=== PATIENT | female | born 1955 | race Caucasian/White ===

== ENCOUNTER 2016-12-11 17:04 | Inpatient (IN) | payer MEDICARE, SELFPAY ==
--- NOTE | ~2016-12-11 | DS ---
Discharge Summary [facility] [address] [place]. [address] NAME: DEBORAH NELSON : 53 STATUS : ADM IN [facility]#: [id number] AGE: 61 ADM/REG DATE : 12/12/16 MR#: [id number] REPORT SERV DATE: 12/15/16 DICTATED BY: Shana HULL DATE: 12/15/16 REPORT STATUS : Draft TRANSCRIBED BY: MODL DATE: 12/15/16 ADMISSION DATE: 12/11/2016 DISCHARGE DATE: 12/15/2016 DIAGNOSES AT DISCHARGE: Gastritis per endoscopy; intractable nausea and vomiting, resolved; epigastric abdominal pain, resolved; chronic pain syndrome, anxiety disorder, hypothyroidism. CONSULTS: Gastroenterology. PROCEDURES: Esophagogastroduodenoscopy. BRIEF SUMMARY: A 61-year-old female patient admitted with epigastric pain and refractory nausea and vomiting. Placed on 2 South telemetry, bowel rest, IV antiemetics and IV fluids with consult to Gastroenterology. Endoscopy was performed showing gastritis. Current biopsies are pending. The patient was treated with ongoing symptom control, IV fluids, acid suppression. Reglan and Questran were added. Symptoms markedly improved. The patient's diet was slowly increased. On 12/15/2016, she was tolerating a diet without difficulty and felt safe to discharge home on her current medical therapy with plans for outpatient followup with GI in four weeks. DISCHARGE MEDICATIONS: Prescriptions provided at the time of discharge include Reglan one with meals, Percocet 5 one q.4 hours p.r.n. #25, Zofran one q.4 hours p.r.n. #30, Questran 4 g packet one daily #30. Further recommendations pending outpatient followup with her primary care provider as well as outpatient followup with Dr. Scott Guardado, Gastroenterology. DICTATED BY: Shana Hull M.D. [facility]/SHANDA Shana Hull M.D. / [id number] CC: Iban Miller
--- NOTE | ~2016-12-11 | CN ---
Consultation Report [facility] [address] [place]. [address] NAME: DEBORAH MOTA : 53 STATUS : ADM Chris PAT#: [id number] AGE: 61 ADM/REG DATE : 12/11/16 MR#: [id number] REPORT SERV DATE: 12/12/16 DICTATED BY: ROSE MARIE TURNER DATE: 12/12/16 REPORT STATUS : Draft TRANSCRIBED BY: MODL DATE: 12/12/16 GI CONSULTATION DATE OF CONSULTATION: 12/12/2016 A 61-year-old female patient admitted on 12/11/2016. REASON FOR CONSULTATION: Evaluation and management of intractable nausea, vomiting, CT evidence for duodenitis. HISTORY OF PRESENT ILLNESS: Ms. Mota is a 61-year-old female patient, who was seen by Dr. Norberto Guardado in the outpatient setting, who actually had an appointment to see him yesterday but secondary to intractable nausea and vomiting, she came to the emergency room for further evaluation. She has a history of peptic ulcer disease. She also has a history of pancreatitis. She has a history of upper endoscopy with EUS on 03/17/2016, by Dr. Guardado secondary to epigastric abdominal pain. She had a normal esophagus on the exam, a very small hiatal hernial, some segmental moderate inflammation, characterized by erosions as well as erythema that were found in the gastric antrum, biopsies were taken. A last colonoscopy was dated in May of 2014 showing internal hemorrhoids grade 2 and normal mucosa throughout the colon. Biopsies for an endoscopic ultrasound in 2015 showed no H. pylori, benign antral type gastric mucosa with chemical gastritis and focal superficial erosions were seen, 2013 colon biopsies were within normal limits. She states that on Sunday, she woke up with some mid epigastric pain which was tolerable. She states that typically she does not eat much on a normal day, that her diet has decreased significantly over the last few days secondary to increasing abdominal pain. She has had nausea with vomiting. She denies any coffee-ground emesis, everything has been either yellow or bilious type material. She had a normal bowel movement yesterday but does give a history of 2 weeks ago having some hematochezia with mucus-type stools which subsequently resolved. Hemoglobin on admission 11.3, presently is 10, she had a CT scan on admission, showing minimally thickened appearance of the duodenum and proximal jejunum with no surrounding edema, question duodenitis versus enteritis. On my assessment, she is still having epigastric pain. She states that at times, it will radiate into her back. She says it is a stabbing quality. Pain medication does relieve this but does not completely take it away. She has had some intermittent fevers up to 101 degrees with cardiac palpitations per her report as well as some pleuritic type chest discomfort. I have discussed with the patient that we will let her have clear liquids today, alter her medication regimen, and plan for upper endoscopy with Dr. Dickens tomorrow. Risks, benefits, alternatives, complications detailed for her to include, but not limited to risk of bleeding, perforation, infection, reaction to medication, as well as cardiac and pulmonary side effects. She is agreeable to proceed. PAST MEDICAL HISTORY: Positive for pancreatitis, gastroenteritis, gastritis, nausea, vomiting, PTSD, hypertension, and idiopathic pulmonary fibrosis. SURGERIES: Include cholecystectomy, right clavicular fracture with repair, vaginal mesh removed for a laparoscopic lysis of adhesions with a left salpingo-oophorectomy in 2016. Consultation Report [address] [place]. [address] NAME: DEBORAH MOTA : 53 STATUS : ADM Chris PAT#: [id number] AGE: 61 ADM/REG DATE : 12/11/16 MR#: [id number] REPORT SERV DATE: 12/12/16 DICTATED BY: ROSE MARIE TURNER DATE: 12/12/16 REPORT STATUS : Draft TRANSCRIBED BY: MODYang DATE: 12/12/16 FAMILY HISTORY: Noncontributory from a GI standpoint. SOCIAL HISTORY: She lives independently, disabled secondary to PTSD. She denies tobacco but has secondhand smoke exposure. No alcohol. Intermittent use of THC. ALLERGIES: ARE TO NOTHING. HOME MEDICATIONS: Consist of ProAir HFA, Xanax, Norvasc, Lipitor, vitamin B12, Sinequan, Nexium, Lasix, Levsin, Synthroid, Toprol, Percocet, potassium, Phenergan, Zantac, Carafate, Zanaflex, Tussionex, and Diovan. REVIEW OF SYSTEMS: A 10-point review of systems has been obtained with pertinent positives being addressed in the history of present illness. PHYSICAL EXAMINATION: VITAL SIGNS: Temperature 99.2, pulse 88, respirations 22, and blood pressure 149/75. NEUROLOGIC: Physical exam reveals an alert, female, resting in bed with no focal deficits. GENERAL: Cooperative, in no apparent distress. Awake, alert, and oriented x3. Appears anxious, with hurried speech. HEAD, EARS, EYES, NOSE, AND THROAT: Anicteric. Pupils equal, round, and reactive to light and accommodation. Normocephalic and atraumatic. NECK: No JVD. No palpable nodes. Supple. LUNGS: Clear anteriorly with normal respiratory effort exhibited. Equal expansion. CARDIOVASCULAR SYSTEM: Regular rate and rhythm. ABDOMEN: Soft with mild tenderness to palpation in the epigastric region with no rebound or guarding elicited on exam. Abdomen is nondistended. No organomegaly was appreciated. EXTREMITIES: No edema. Normal distal pulses. SKIN: Warm, dry, and intact. PERTINENT LABORATORY DATA: Sodium is 136, potassium 3.2, BUN 15, and creatinine 0.89. White count 13.6, hemoglobin 10, hematocrit 30.5 with a platelet count of 346. INR of 1.1. Total bilirubin 0.8, alkaline phosphatase 113, ALT 15, AST 10, and lipase 85. ASSESSMENT: 1. Intractable nausea with vomiting. 2. CT scan with duodenitis versus enteritis. 3. Epigastric abdominal pain. 4. History of pancreatitis. 5. Leukocytosis. 6. Hypokalemia. 7. Hematochezia 2 weeks ago, since resolved. Consultation Report [address] [place]. [address] NAME: DEBORAH MOTA : 53 STATUS : ADM Chris PAT#: [id number] AGE: 61 ADM/REG DATE : 12/11/16 MR#: [id number] REPORT SERV DATE: 12/12/16 DICTATED BY: ROSE MARIE TURNER DATE: 12/12/16 REPORT STATUS : Draft TRANSCRIBED BY: SHANDA DATE: 12/12/16 PLAN: 1. Clear liquid diet today. 2. Low-dose Reglan. 3. H2 inhibitor. 4. Levsin. 5. Stool studies if diarrhea returns. 6. EGD in the morning. 7. Replace electrolytes. We will follow other recommendations to follow endoscopy. WIN/SHANDA KATHLEEN Rizvi / [id number] CC: Iban Miller
--- NOTE | ~2016-12-11 | EGD ---
EGD REPORT [facility] [address] [address] NAME: DEBORAH MOTA : 53 STATUS : ADM IN PAT#: [id number] AGE: 61 ADM/REG DATE : 12/12/16 MR#: [id number] REPORT SERV DATE: 12/13/16 DICTATED BY: FER LENTZ DATE: 12/13/16 REPORT STATUS : Draft TRANSCRIBED BY: [facility] DATE: 12/13/16 Endoscopy Center Patient Name: Deborah Mota Date of : 1955 Attending MD: FER LENTZ MD Procedure Date No Time: 12/13/2016 Procedure: Upper GI endoscopy Indications: Epigastric abdominal pain, Persistent vomiting of unknown cause Referring MD: Reema Vazquez Medicines: Monitored Anesthesia Care Complications: No immediate complications. Estimated blood loss: Minimal. Procedure: Pre-Anesthesia Assessment: - ASA Grade Assessment: III - A patient with severe systemic disease. After obtaining informed consent, the endoscope was passed under direct vision. Throughout the procedure, the patient's blood pressure, pulse, and oxygen saturations were monitored continuously. The GIF [id number] was introduced through the mouth, and advanced to the second part of duodenum. The upper GI endoscopy was accomplished without difficulty. The patient tolerated the procedure well. Findings: The examined esophagus was normal. Localized mild inflammation characterized by erythema and linear erosions was found in the gastric antrum and at the pylorus. Biopsies were taken with a cold forceps for Helicobacter pylori testing. Estimated blood loss was minimal. The examined duodenum was normal. The cardia and gastric fundus were normal on retroflexion. Impression: - Gastritis. Biopsied. - Otherwise normal examination. Recommendation: - Return patient to hospital hooper for ongoing care. - Full liquid diet and then advance diet as tolerated by symptoms. - Use Nexium 40 mg PO BID for 6 weeks. - Use a trial of Questran at 1 packet (4 grams) PO AC. - Use a trial of Simethicone 80 mg PO BID Procedure Code(s): --- Professional --- EGD REPORT [facility] [address] [facility] [place]. [address] NAME: DEBORAH MOTA : 53 STATUS : ADM IN [facility]#: [id number] AGE: 61 ADM/REG DATE : 12/12/16 MR#: [id number] REPORT SERV DATE: 12/13/16 DICTATED BY: FER LENTZ DATE: 12/13/16 REPORT STATUS : Draft TRANSCRIBED BY: [employer] DATE: 12/13/16 68099, Esophagogastroduodenoscopy, flexible, transoral; with biopsy, single or multiple Diagnosis Code(s): --- Professional --- K29.70, Gastritis, unspecified, without bleeding R10.13, Epigastric pain R11.10, Vomiting, unspecified CPT copyright 2013 [employer]. All rights reserved. The codes documented in this report are preliminary and upon fire safety director review may be revised to meet current compliance requirements. Fer Lentz MD FER LENTZ MD 12/13/2016 8:12 AM This report has been signed electronically. Number of Addenda: 0 Note Initiated On: 12/13/2016 7:33 AM Scope Withdrawal Time 0 hours 0 minutes 0 seconds [address] [place] [address]
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
[2016-12-11 12:26] LABS: BUN (BLOOD UREA NITROGEN) 11 MG/DL (6-23); CALCIUM, SERUM 10.1 MG/DL (8.5-10.4); CHEST PAIN PROFILE TAT 0 Hrs 22 Mins; CHLORIDE, SERUM 100 MMOL/L (96-112); CO2 (CARBON DIOXIDE) 26 MMOL/L (24-34); GFR AFRICAN AMERICAN 79 ML/MIN (>=60); GFR NON AFRICAN AMERICAN 69 ML/MIN (>=60); GLUCOSE, SERUM 148 MG/DL (60-99); SODIUM, SERUM 137 MMOL/L (135-148); TROPONIN I <0.02 NG/ML (<0.05)
[2016-12-11 16:10] LABS: BASOPHILS 0.1 %; BASOPHILS ABSOLUTE 0.01 10/3/uL (0.0-0.16); EOSINOPHILS 0.1 %; EOSINOPHILS ABSOLUTE 0.01 10/3/uL (0.0-0.53); HEMATOCRIT 34.6 % (36.0-48.0); HEMOGLOBIN 11.3 g/dL (12.0-16.0); IMMATURE GRANULOCYTES 0.3 %; IMMATURE GRANULOCYTES ABSOLUTE 0.06 10/3/uL (0.0-0.11); LYMPHOCYTES 5.7 %; LYMPHOCYTES ABSOLUTE 0.98 10/3/uL (0.67-4.30); MEAN CORPUS HGB CONC 32.7 g/dL (32.0-36.0); MEAN PLATELET VOLUME 10.2 fL (9.2-13.0); MONOCYTES 0.6 %; MONOCYTES ABSOLUTE 0.11 10/3/uL (0.21-1.20); NEUTROPHILS 93.2 %; RED CELL COUNT 4.04 10/6/uL (4.0-5.6)
[2016-12-11 16:16] LABS: ER CBC TAT 0 Hrs 15 Mins; MANUAL DIFF NO %; MEAN CORPUSCULAR VOLUME 85.6 fL (80-100); PLATELET COUNT 367 10/3/uL (150-400); WHITE BLOOD CELLS 17.3 10/3/uL (4.5-10.5)
[~2016-12-11 17:04] MED LIST: AFRIN15 NAS; B121000P IM; CLARIT10 PO; CRESTOR40 MG PO; DIOV160 PO; DITRO5 PO; GAVISCO2 PO; K-TABS10 MEQ PO; L40 PO; LOP25 PO; NAP500 PO; NATURA2 OPH; NEXIUM40 PO; NORV5 PO; PCET PO; PR25 PO; PREV30 PO; PROAIR HFA INH; PROTONIX PO; REG PO; SINGULAIR1 PO; SUCR PO; SYN112 PO; ZANTAC 150 PO; ZANTAC150 MG PO; ZETIA PO; ZOL50 PO
[2016-12-11] MEDS ORDERED: SUCR PO (17:36)
[2016-12-11] MEDS ORDERED: DIOV80 PO (17:37)
[2016-12-11] MEDS ORDERED: ZANTAC300 MG PO (17:37)
[2016-12-11] MEDS ORDERED: LIPITOR40 PO (17:37)
[2016-12-11] MEDS ORDERED: SYN112 PO (17:37)
[2016-12-11] MEDS ORDERED: K-TABS10 MEQ PO (17:37)
[2016-12-11] MEDS ORDERED: L40 PO (17:38)
[2016-12-11] MEDS ORDERED: TOPXL25 PO (17:38)
[2016-12-11] MEDS ORDERED: PERCOCET 10/3251 TAB PO (17:39)
[2016-12-11] MEDS ORDERED: NEXIUM40 PO (17:40)
[2016-12-11] MEDS ORDERED: PR25 PO (17:41)
[2016-12-11] MEDS ORDERED: NORV10 PO (17:41)
[2016-12-11] MEDS ORDERED: B121000P IM (17:41)
[2016-12-11] MEDS ORDERED: PROAIR HFA INH (17:42)
[2016-12-11] MEDS ORDERED: TUSSIONEX PO (17:43)
[2016-12-11] MEDS ORDERED: SINEQUAN 75 MG75 MG PO (17:43)
[2016-12-11] MEDS ORDERED: X5 PO (17:44)
[2016-12-11] MEDS ORDERED: ZANAFLEX 4 MG TA4 MG PO (17:45)
[2016-12-11] MEDS ORDERED: LEVSINTAB PO (17:45)
[2016-12-11 18:27] LABS: WBC (NOT ORDERED) (RFLEX) 0 (0-5)
[2016-12-11 18:38] LABS: ASCORBIC ACID (UR NOT ORDER) NEG (NEG); BILIRUBIN, URINE NEGATIVE (NEG); ER URINALYSIS TAT 0 Hrs 12 Mins; KETONE, URINE NEGATIVE (NEG); LEUKOCYTE ESTERASE(NOT OR NEG (NEG); NITRITE (URINE) NEG (NEG)
[2016-12-11 20:45] LABS: INTERNATIONAL NORMAL RATI 1.1 UNITS (-); PROTIME (NOT ORD) 13.7 SEC (12.0-14.5)
[2016-12-11 20:46] LABS: PARTIAL THROMBO TIME 27.3 SEC (22.5-37.2)
[2016-12-11 20:51] LABS: LACTATE 1.5 MMOL/L (0.3-2.4)
[2016-12-11 21:33] LABS: PROCALCITONIN 0.06 ng/mL (<0.5)
[2016-12-12 05:40] LABS: BASOPHILS 0.2 %; BASOPHILS ABSOLUTE 0.03 10/3/uL (0.0-0.16); EOSINOPHILS 0.3 %; EOSINOPHILS ABSOLUTE 0.04 10/3/uL (0.0-0.53); IMMATURE GRANULOCYTES 0.4 %; IMMATURE GRANULOCYTES ABSOLUTE 0.05 10/3/uL (0.0-0.11); LYMPHOCYTES 29.4 %; MEAN CORPUS HGB CONC 32.8 g/dL (32.0-36.0); MEAN CORPUSCULAR HEMOGLOB 28.4 pg (26.0-34.0); MEAN CORPUSCULAR VOLUME 86.6 fL (80-100); MEAN PLATELET VOLUME 9.7 fL (9.2-13.0); MONOCYTES 7.7 %; MONOCYTES ABSOLUTE 1.05 10/3/uL (0.21-1.20); NEUTROPHILS ABSOLUTE 8.43 10/3/uL (2.02-8.40); PLATELET COUNT 346 10/3/uL (150-400); RBC DISTRIBUTION WIDTH 13.9 % (12.0-16.0); RED CELL COUNT 3.52 10/6/uL (4.0-5.6); WHITE BLOOD CELLS 13.6 10/3/uL (4.5-10.5)
[2016-12-12 05:43] LABS: HEMATOCRIT 30.5 % (36.0-48.0); MANUAL DIFF NO %
[2016-12-12 06:06] LABS: A/G RATIO 1.1 (0.7-1.9); ALBUMIN 3.8 G/DL (3.5-5.0); CHLORIDE, SERUM 99 MMOL/L (96-112); CO2 (CARBON DIOXIDE) 27 MMOL/L (24-34); CPK 71 U/L (0-200); CREATININE 0.89 MG/DL (0.55-1.02); GFR AFRICAN AMERICAN 81 ML/MIN (>=60); GFR NON AFRICAN AMERICAN 69 ML/MIN (>=60); GLOBULIN 3.6 G/DL (2.5-4.1); PHOSPHORUS, SERUM 2.6 MG/DL (2.5-4.5); POTASSIUM, SERUM 3.2 MMOL/L (3.5-5.3); SGOT(AST) 10 U/L (5-40); SGPT(ALT) 15 U/L (5-65); SODIUM, SERUM 136 MMOL/L (135-148); TOTAL PROTEIN 7.4 G/DL (6.0-8.5); TROPONIN I <0.02 NG/ML (<0.05)
[2016-12-12 06:09] LABS: ALKALINE PHOSPHATASE 113 U/L (45-117); BUN (BLOOD UREA NITROGEN) 15 MG/DL (6-23); CK-MB 0.7 NG/ML; GLUCOSE, SERUM 102 MG/DL (60-99); TOTAL BILIRUBIN 0.8 MG/DL (0-1.2); ULTRASENSITIVE TSH 0.731 MCIU/ML (0.358-3.740)
[2016-12-12 10:52] LABS: CK-MB 1.1 NG/ML; CPK 90 U/L (0-200); TROPONIN I <0.02 NG/ML (<0.05)
[2016-12-12 19:55] LABS: CPK 89 U/L (0-200); POTASSIUM, SERUM 3.5 MMOL/L (3.5-5.3); TROPONIN I <0.02 NG/ML (<0.05)
[2016-12-12 19:56] LABS: CK-MB 1.6 NG/ML
[2016-12-13 05:15] LABS: BASOPHILS 0.4 %; BASOPHILS ABSOLUTE 0.03 10/3/uL (0.0-0.16); EOSINOPHILS 1.9 %; EOSINOPHILS ABSOLUTE 0.16 10/3/uL (0.0-0.53); HEMATOCRIT 31.3 % (36.0-48.0); HEMOGLOBIN 10.3 g/dL (12.0-16.0); IMMATURE GRANULOCYTES 0.2 %; IMMATURE GRANULOCYTES ABSOLUTE 0.02 10/3/uL (0.0-0.11); LYMPHOCYTES 44.3 %; LYMPHOCYTES ABSOLUTE 3.72 10/3/uL (0.67-4.30); MANUAL DIFF NO %; MEAN CORPUS HGB CONC 32.9 g/dL (32.0-36.0); MEAN CORPUSCULAR HEMOGLOB 28.5 pg (26.0-34.0); MEAN CORPUSCULAR VOLUME 86.7 fL (80-100); MEAN PLATELET VOLUME 9.6 fL (9.2-13.0); MONOCYTES 8.9 %; MONOCYTES ABSOLUTE 0.75 10/3/uL (0.21-1.20); NEUTROPHILS 44.3 %; NEUTROPHILS ABSOLUTE 3.71 10/3/uL (2.02-8.40); PLATELET COUNT 306 10/3/uL (150-400); RBC DISTRIBUTION WIDTH 13.7 % (12.0-16.0); RED CELL COUNT 3.61 10/6/uL (4.0-5.6); WHITE BLOOD CELLS 8.4 10/3/uL (4.5-10.5)
[2016-12-13 05:21] LABS: INTERNATIONAL NORMAL RATI 1.1 UNITS (-); PROTIME (NOT ORD) 14.3 SEC (12.0-14.5)
[2016-12-13 05:35] LABS: BUN (BLOOD UREA NITROGEN) 12 MG/DL (6-23); CHLORIDE, SERUM 102 MMOL/L (96-112); CO2 (CARBON DIOXIDE) 28 MMOL/L (24-34); CREATININE 0.91 MG/DL (0.55-1.02); GFR AFRICAN AMERICAN 78 ML/MIN (>=60); GFR NON AFRICAN AMERICAN 68 ML/MIN (>=60); GLUCOSE, SERUM 95 MG/DL (60-99); PHOSPHORUS, SERUM 3.2 MG/DL (2.5-4.5); POTASSIUM, SERUM 3.9 MMOL/L (3.5-5.3); SODIUM, SERUM 137 MMOL/L (135-148)
[2016-12-14 13:34] LABS: TROPONIN I <0.02 NG/ML (<0.05)
[2016-12-14 13:47] LABS: BASOPHILS 0.6 %; BASOPHILS ABSOLUTE 0.05 10/3/uL (0.0-0.16); EOSINOPHILS 2.1 %; EOSINOPHILS ABSOLUTE 0.19 10/3/uL (0.0-0.53); HEMOGLOBIN 11.4 g/dL (12.0-16.0); IMMATURE GRANULOCYTES 0.2 %; IMMATURE GRANULOCYTES ABSOLUTE 0.02 10/3/uL (0.0-0.11); LYMPHOCYTES 38.1 %; LYMPHOCYTES ABSOLUTE 3.37 10/3/uL (0.67-4.30); MEAN CORPUS HGB CONC 32.4 g/dL (32.0-36.0); MEAN CORPUSCULAR VOLUME 86.5 fL (80-100); MEAN PLATELET VOLUME 9.8 fL (9.2-13.0); MONOCYTES ABSOLUTE 0.53 10/3/uL (0.21-1.20); NEUTROPHILS ABSOLUTE 4.69 10/3/uL (2.02-8.40); PLATELET COUNT 354 10/3/uL (150-400); RBC DISTRIBUTION WIDTH 13.6 % (12.0-16.0); RED CELL COUNT 4.07 10/6/uL (4.0-5.6); WHITE BLOOD CELLS 8.9 10/3/uL (4.5-10.5)
[2016-12-14 13:49] LABS: HEMATOCRIT 35.2 % (36.0-48.0); MANUAL DIFF NO %
[2016-12-14 14:56] LABS: BUN (BLOOD UREA NITROGEN) 11 MG/DL (6-23); CHLORIDE, SERUM 99 MMOL/L (96-112); CO2 (CARBON DIOXIDE) 29 MMOL/L (24-34); CREATININE 1.06 MG/DL (0.55-1.02); GFR AFRICAN AMERICAN 65 ML/MIN (>=60); GFR NON AFRICAN AMERICAN 56 ML/MIN (>=60); GLUCOSE, SERUM 93 MG/DL (60-99); PHOSPHORUS, SERUM 3.9 MG/DL (2.5-4.5); SODIUM, SERUM 133 MMOL/L (135-148); TROPONIN I <0.02 NG/ML (<0.05)
[2016-12-15 09:10] LABS: BASOPHILS 0.5 %; BASOPHILS ABSOLUTE 0.04 10/3/uL (0.0-0.16); EOSINOPHILS ABSOLUTE 0.23 10/3/uL (0.0-0.53); HEMOGLOBIN 10.7 g/dL (12.0-16.0); IMMATURE GRANULOCYTES 0.1 %; IMMATURE GRANULOCYTES ABSOLUTE 0.01 10/3/uL (0.0-0.11); LYMPHOCYTES 41.2 %; LYMPHOCYTES ABSOLUTE 3.12 10/3/uL (0.67-4.30); MEAN CORPUS HGB CONC 32.4 g/dL (32.0-36.0); MEAN CORPUSCULAR HEMOGLOB 27.9 pg (26.0-34.0); MEAN CORPUSCULAR VOLUME 85.9 fL (80-100); MEAN PLATELET VOLUME 9.8 fL (9.2-13.0); MONOCYTES 7.9 %; NEUTROPHILS 47.3 %; NEUTROPHILS ABSOLUTE 3.58 10/3/uL (2.02-8.40); PLATELET COUNT 312 10/3/uL (150-400); RBC DISTRIBUTION WIDTH 13.6 % (12.0-16.0); RED CELL COUNT 3.84 10/6/uL (4.0-5.6); WHITE BLOOD CELLS 7.6 10/3/uL (4.5-10.5)
[2016-12-15 09:11] LABS: MANUAL DIFF NO %
[2016-12-15 09:27] LABS: BUN (BLOOD UREA NITROGEN) 11 MG/DL (6-23); CALCIUM, SERUM 9.2 MG/DL (8.5-10.4); CHLORIDE, SERUM 101 MMOL/L (96-112); CO2 (CARBON DIOXIDE) 27 MMOL/L (24-34); CREATININE 0.96 MG/DL (0.55-1.02); GFR AFRICAN AMERICAN 73 ML/MIN (>=60); GFR NON AFRICAN AMERICAN 63 ML/MIN (>=60); PHOSPHORUS, SERUM 3.4 MG/DL (2.5-4.5); POTASSIUM, SERUM 4.1 MMOL/L (3.5-5.3); SODIUM, SERUM 138 MMOL/L (135-148); TROPONIN I <0.02 NG/ML (<0.05)
[2016-12-15 09:29] LABS: GLUCOSE, SERUM 114 MG/DL (60-99)
[2016-12-15] MEDS ORDERED: REG5 PO (11:22)
[2016-12-15] MEDS ORDERED: PCET PO (11:22)
[2016-12-15] MEDS ORDERED: ZOFRAN4 PO (11:23)
[2016-12-15] MEDS ORDERED: QUESLITE PO (11:23)
[2017-03-18] MEDS ORDERED: SUCR PO (20:28)
[2017-03-18] MEDS ORDERED: ZANTAC300 MG PO (20:29)
[2017-03-18] MEDS ORDERED: SYN112 PO (20:29)
[2017-03-18] MEDS ORDERED: DIOV160 PO (20:30)
[2017-03-18] MEDS ORDERED: KDUR10 PO (20:30)
[2017-03-18] MEDS ORDERED: ZANAFLEX 4 MG TA4 MG PO (20:31)
[2017-03-18] MEDS ORDERED: LOP25 PO (20:31)
[2017-03-18] MEDS ORDERED: PERCOCET 10/3251 TAB PO (20:31)
[2017-03-18] MEDS ORDERED: L40 PO (20:31)
[2017-03-18] MEDS ORDERED: NEXIUM40 PO (20:32)
[2017-03-18] MEDS ORDERED: B121000P IM (20:33)
[2017-03-18] MEDS ORDERED: X5 PO (20:33)
[2017-03-18] MEDS ORDERED: SINGULAIR1 PO (20:33)
[2017-03-18] MEDS ORDERED: LEVSINTAB PO (20:34)
[2017-03-18] MEDS ORDERED: LOFIB160 PO (20:34)
[2017-03-18] MEDS ORDERED: PR25 PO (20:34)
[2017-03-18] MEDS ORDERED: IMITREX50 PO (20:35)
[2017-03-18] MEDS ORDERED: IRON OTC PO (20:35)
[2017-03-18] MEDS ORDERED: VENTOLIN HFA PO (20:35)
[2017-03-18] MEDS ORDERED: ZYRTEC ALLGY10 MG PO (20:35)
== END 2016-12-15 13:54 | disposition home or self-care (01) | DRG 872 ==
LOC: ER 17:04 → CDU1 18:44 → 2SO 12-13 16:58
PROVIDERS: Hospitalist; Internal Medicine; Physician Assistant
PROC: 0DB68ZX Excision of Stomach, Via Natural or Artificial Opening Endoscopic, Diagnostic (ICD-10-PCS; principal; 2016-12-11)
DX: A41.9 Sepsis, unspecified organism (principal); J84.112 Idiopathic pulmonary fibrosis; K92.1 Melena; K29.80 Duodenitis without bleeding; K52.9 Noninfective gastroenteritis and colitis, unspecified; D50.9 Iron deficiency anemia, unspecified; F43.10 Post-traumatic stress disorder, unspecified; E87.6 Hypokalemia; E78.5 Hyperlipidemia, unspecified; R73.9 Hyperglycemia, unspecified; F41.9 Anxiety disorder, unspecified; K29.70 Gastritis, unspecified, without bleeding; G89.4 Chronic pain syndrome; E03.9 Hypothyroidism, unspecified; K31.9 Disease of stomach and duodenum, unspecified; K44.9 Diaphragmatic hernia without obstruction or gangrene; Z80.3 Family history of malignant neoplasm of breast; Z82.49 Family history of ischemic heart disease and other diseases of the circulatory system; Z98.890 Other specified postprocedural states
CPT/HCPCS: 71020; 74176; 80048; 80053; 81001; 82150; 82550; 82553; 82962; 83036; 83605; 83690; 83735; 84100; 84132; 84145; 84443; 84484; 85025; 85610; 85730; 87040; 87449; 88305; 88342; 93005; 93306; 96374; 96375; 96376; 97161-GP; 99285; A9270-GY; C9113; G8978-CH-GP; G8979-CH-GP; G8980-CH-GP; J1170; J1956; J2405; J2765